=== PATIENT | female | born 1955 | race Caucasian/White ===

== ENCOUNTER 2016-07-28 16:44 | Emergency (ER) | payer SELFPAY ==
[~2016-07-28 16:44] MED LIST: LISI-363 PO
[2016-07-28 16:59] VITALS: BP 129/82; PULSE 75; RESP 16; TEMP 98.2; O2SAT 94
--- NOTE | 2016-07-28 19:35 | PD ---
HPI Chief Complaint: Alcohol/Drug Intoxication Time Seen by Provider: 19:34 Travel History International Travel<30 days: No Contact w/Intl Traveler<30days: No Traveled to known affect area: No History of Present Illness HPI 60-year-old female presents to the emergency department under my [place] act for alcohol intoxication. She reports alcohol use daily. Denies illicit drug use. She said she had a little bit too much to drink today. He has no emergent medical complaints. She denies fever, chills, nausea, vomiting. Denies chest pain, shortness breath, abdominal pain, change in urine or stool. I suicidal or homicidal ideation. Denies auditory or visual hallucinations. No known allergies. No other modifying factors or associated signs and symptoms. PFSH Past Medical History Arthritis: Yes Blood Disorders: No Anxiety: No Depression: No Cancer: No Cardiovascular Problems: No Cerebrovascular Accident: No Endocrine: No Genitourinary: No Headaches: Yes Immune Disorder: No Musculoskeletal: Yes Neurologic: Yes Psychiatric: Yes Reproductive: No Respiratory: No Migraines: No Seizures: No Past Surgical History AICD: No Arteriovenous Shunt: No Insulin Pump: No Joint Replacement: No Pacemaker: No Social History Alcohol Use: Yes (DAILY) Tobacco Use: Yes (ONE PK PER DAY) Substance Use: No Allergies-Medications (Allergen,Severity, Reaction): Coded Allergies: No Known Allergies (Verified , 07/28/16) Reported Meds & Prescriptions Reported Meds & Active Scripts Active No Active Prescriptions or Reported Medications Review of Systems Except as stated in HPI: all other systems reviewed are Neg Physical Exam Narrative GENERAL: Well-nourished, well-developed female patient, in no acute distress; disheveled, smells of EtOH SKIN: Warm and dry. HEAD: Atraumatic. Normocephalic. EYES: Pupils equal and round. ENT: Mucosa pink and moist. NECK: Supple. Trachea midline. CARDIOVASCULAR: Regular rate and rhythm. No murmur appreciated. RESPIRATORY: No accessory muscle use. Clear to auscultation. Breath sounds equal bilaterally. GASTROINTESTINAL: Abdomen soft, non-tender, nondistended. Hepatic and splenic margins not palpable. Bowel sounds are active 4 quadrants. MUSCULOSKELETAL: No obvious deformities. No clubbing. No cyanosis. No edema. BACK: No CVA tenderness. NEUROLOGICAL: Awake and alert. Oriented 3. No obvious cranial nerve deficits. Motor grossly within normal limits. Normal speech. Moves all extremities. 5/5 strength to all extremities. PSYCHIATRIC: No delusional thought processes. No hallucinations. Data Data Last Documented VS Vital Signs Date Time Temp Pulse Resp B/P Pulse Ox O2 Delivery O2 Flow Rate FiO2 07/28/16 16:59 98.2 75 16 129/82 94 Orders Diet Regular Basic (07/29/16 Breakfast) MDM Medical Decision Making Medical Screen Exam Complete: Yes Emergency Medical Condition: Yes Medical Record Reviewed: Yes Differential Diagnosis Alcohol intoxication, alcohol abuse, alcohol dependence, medical clearance Narrative Course 60-year-old female presents to the ER under Marchman act for alcohol intoxication. The patient smells of EtOH. She is awake and alert for physical exam. Has no emergent medical complaints at this time. The patient will be given time to sleep it off and will be reevaluated at a later time when clinically sober. The patient will most likely be discharged home at that time. Diagnosis Primary Impression: Alcohol intoxication Qualified Code: F10.120 - Alcohol intoxication, uncomplicated Referrals: Primary Care Physician Patient Instructions: Abuse of Alcohol (ED), Alcohol Dependence (ED), Alcohol Intoxication (ED), General Instructions Additional Instructions: Stop drinking alcohol Follow-up with primary care provider Med/Other Pt SpecificInfo: No Meds Exist/No RX given Scripts No Active Prescriptions or Reported Meds Disposition: 01 DISCHARGE HOME Condition: Stable Clara Culp Jul 28, 2016 19:35
[2016-07-28 21:39] VITALS: BP 118/61; PULSE 92; RESP 18; O2SAT 95
[2016-07-29 01:41] VITALS: BP 116/62; PULSE 74; RESP 14; O2SAT 95
[2016-07-29 05:30] VITALS: BP 121/73; PULSE 98; RESP 16; O2SAT 95
== END 2016-07-29 06:08 | disposition home or self-care (01) ==
LOC: NEDAMB 16:44 → NEPA 07-29 06:08
DX: F10.129 Alcohol abuse with intoxication, unspecified (principal); F17.210 Nicotine dependence, cigarettes, uncomplicated
CPT/HCPCS: 99284

== ENCOUNTER 2017-04-10 15:23 | Emergency (ER) | payer OTHER ==
[2017-04-10 16:05] VITALS: BP 156/65; PULSE 84; RESP 20; TEMP 98; O2SAT 97
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
[2017-04-10] MEDS ORDERED: TETANUS/DIPHTHERIA TOXOID ADULT 0.5 ML VIAL IM ONE (16:30)
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
[2017-04-10 19:15] VITALS: BP 184/97
== END 2017-04-10 19:28 | disposition home or self-care (01) ==
LOC: NEDAMB 15:23
DX: S09.90XA Unspecified injury of head, initial encounter (principal); S50.312A Abrasion of left elbow, initial encounter; S00.03XA Contusion of scalp, initial encounter; V19.9XXA Pedal cyclist (driver) (passenger) injured in unspecified traffic accident, initial encounter; Y93.55 Activity, bike riding; Y92.481 Parking lot as the place of occurrence of the external cause; Z23 Encounter for immunization; I10 Essential (primary) hypertension
CPT/HCPCS: 70450; 90471; 90714

== ENCOUNTER 2017-07-24 10:02 | Inpatient (IN) | payer SELFPAY ==
[~2017-07-24] VITALS: Ht 172.7 cm; Wt 79.5 kg
[2017-07-24 10:03] VITALS: BP 177/131; PULSE 116; RESP 20; TEMP 98.8; O2SAT 97
[2017-07-24] MEDS ORDERED: ACETAMINOPHEN/HYDROcodone 325 MG/5 MG TAB PO ONE (10:30)
--- NOTE | 2017-07-24 11:30 | RADRPT ---
EXAM DATE/TIME: 07/24/2017 11:07 [facility] COMPARISON: No previous studies available for comparison. INDICATIONS : Fell Sunday, painful, deformed with laceration to 5th finger. MEDICAL HISTORY : None. SURGICAL HISTORY : None. ENCOUNTER: Initial ACUITY: 4 - 6 days PAIN SCORE: 10/10 LOCATION: Left hand FINDINGS: There is a transverse fracture through the proximal metaphysis of the 5th digit proximal phalanx with moderate medial angulation of the distal fracture fragment. There is diffuse osteopenia. The remai nder of the osseous structures of the hand are intact. No radiopaque foreign bodies. CONCLUSION: Angulated fracture of the proximal metaphysis of the 5th digit proximal phalanx. Jason Leonardo MD on July 24, 2017 at 11:28 Board Certified Radiologist. This report was verified electronically.
[2017-07-24] MEDS ORDERED: PROPOFOL 200 MG/20 ML AMP IV ONE (12:00)
[2017-07-24] MEDS ORDERED: ONDANSETRON HCL 4 MG/2 ML VIAL IV ONE (12:00)
[2017-07-24] MEDS ORDERED: GENTAMICIN 80 MG PREMIX 100 ML IV ONE (12:00)
[2017-07-24] MEDS ORDERED: ceFAZolin 2 GM PREMIX 50 ML IV ONE (12:00)
[2017-07-24] MEDS ORDERED: DEXAMETHASONE SOD PHOS 4 MG/ML VIAL IV ONE (12:00)
[2017-07-24] MEDS ORDERED: LIDOCAINE HCL 1% PF 5 ML SYRINGE OTHER ONE (12:00)
[2017-07-24] MEDS ORDERED: NEOSTIGMINE 5 MG/5 ML SYRINGE IV PUSH ONE (12:00)
[2017-07-24] MEDS ORDERED: ROCURONIUM INJ 50 MG/5 ML SYRINGE IV PUSH ONE (12:00)
[2017-07-24] MEDS ORDERED: ePHEDrine/NS 25 MG/5 ML SYRINGE IV ONE (12:00)
[2017-07-24] MEDS ORDERED: GLYCOPYRROLATE 1 MG/5 ML SYRINGE IV PUSH ONE (12:00)
--- NOTE | 2017-07-24 12:31 | PD ---
HPI Chief Complaint: Injury Time Seen by Provider: 10:12 Travel History International Travel<30 days: No Contact w/Intl Traveler<30days: No Traveled to known affect area: No History of Present Illness HPI Patient is a 61 year old female who comes in complaining of pain to her left fifth finger. She says that on Sunday she fell and she hit her hand on a fence. She says her finger was crooked at the time and she noticed the laceration. She says her friend bandaged it for her. She comes in today because she is still having a lot of pain. She has not taken anything for the pain. She has not taken the bandage off since it was put on. She denies fever or chills. Severity is mild to moderate. PFSH Past Medical History Arthritis: Yes Blood Disorders: No Anxiety: No Depression: No Cancer: No Cardiovascular Problems: No Cerebrovascular Accident: No Endocrine: No Genitourinary: No Headaches: Yes Hypertension: Yes (Does not take medication for it) Immune Disorder: No Musculoskeletal: Yes Neurologic: Yes Psychiatric: Yes Reproductive: No Respiratory: No Migraines: No Seizures: No ?: Not Past Surgical History AICD: No Arteriovenous Shunt: No Insulin Pump: No Joint Replacement: No Pacemaker: No Social History Alcohol Use: Yes (DAILY) Tobacco Use: Yes (ONE PK PER DAY) Substance Use: Yes ("Pot occationally") Allergies-Medications (Allergen,Severity, Reaction): Coded Allergies: No Known Allergies (Verified Adverse Reaction, Unknown, 07/24/17) Reported Meds & Prescriptions Reported Meds & Active Scripts Active No Active Prescriptions or Reported Medications Review of Systems Except as stated in HPI: all other systems reviewed are Neg General / Constitutional: No: Fever, Chills HENT: No: Headaches, Lightheadedness Cardiovascular: No: Chest Pain or Discomfort Respiratory: No: Shortness of Breath Gastrointestinal: No: Nausea, Vomiting Musculoskeletal: Positive: Pain Skin: Positive Other (laceration) Neurologic: No: Weakness, Dizziness Physical Exam Narrative GENERAL: Awake and alert, in no acute distress. SKIN: Skin at the base of the left fifth finger is macerated. There is a laceration that appears to be oozing pus. HEAD: Atraumatic. Normocephalic. EYES: Pupils equal and round. No scleral icterus. ENT: Mucous membranes pink and moist. NECK: Trachea midline. No JVD. CARDIOVASCULAR: Regular rate and rhythm. No murmur appreciated. RESPIRATORY: No accessory muscle use. Clear to auscultation. Breath sounds equal bilaterally. MUSCULOSKELETAL: left fifth finger is angulated and painful with movement. Sensation intact, capillary refill intact. NEUROLOGICAL: Awake and alert. No obvious cranial nerve deficits. Motor grossly within normal limits. Normal speech. PSYCHIATRIC: Appropriate mood and affect; insight and judgment normal. Data Data Last Documented VS Vital Signs Date Time Temp Pulse Resp B/P (MAP) Pulse Ox O2 Delivery O2 Flow Rate FiO2 07/24/17 10:03 98.8 116 20 177/131 (146) 97 Room Air Orders Orders Acetamin-Hydrocod 325-5 Mg ([place] 5-325 (07/24/17 10:30) Hand, Complete ([id number]) (07/24/17 ) Iv Access Insert/Monitor (07/24/17 11:58) Complete Blood Count With Diff (07/24/17 11:58) Comprehensive Metabolic Panel (07/24/17 11:58) Act Partial Throm Time (Ptt) (07/24/17 11:58) Prothrombin Time / Inr (Pt) (07/24/17 11:58) Cefazolin 2 Gm Premix (Ancef 2 Gm Premix (07/24/17 12:00) Gentamicin 80 Mg Premix (Gentamicin 80 M (07/24/17 12:00) MDM Medical Decision Making Medical Screen Exam Complete: Yes Emergency Medical Condition: Yes Medical Record Reviewed: Yes Differential Diagnosis fracture vs laceration vs open fracture Narrative Course Patient is a 61 year old female who comes in complaining of pain to her left fifth finger. Exam shows angulation of the finger with a laceration at the base of the finger that appears infected. XR confirms fracture of the fifth finger. Last 24 hours Impressions Hand X-Ray 07/24/17 0000 Signed Impressions: Service Date/Time: Monday, July 24, 2017 11:07 - CONCLUSION: Angulated fracture of the proximal metaphysis of the 5th digit proximal phalanx. Jason Leonardo MD There is concern for an open fracture with signs of infection on the skin. I spoke with Dr. Briggs who suggests admission for IV antibiotics and he will take her to the OR to wash out the joint this evening. IV established. She was given Ancef and Gentamicin. Given pain medicine. Admitted for further management. Diagnosis Primary Impression: Open fracture Admitting Information Admitting Physician Requests: Admit Scripts No Active Prescriptions or Reported Meds Nena Beckham MD Jul 24, 2017 12:31
[2017-07-24 12:37] LABS: AUTOMATED NEUTROPHIL # 6.5 TH/MM3 (1.8-7.7); BASOPHIL % 0.3 % (0.0-2.0); EOSINOPHIL # 0.1 TH/MM3 (0-0.4); EOSINOPHIL % 1.1 % (0.0-4.0); HEMATOCRIT 43.4 % (35.0-46.0); LYMPH % 15.8 % (9.0-44.0); LYMPHOCYTE # 1.4 TH/MM3 (1.0-4.8); MEAN CELL VOLUME 91.3 FL (80.0-100.0); MEAN CORPUSCULAR HEMOGLOBIN 31.6 PG (27.0-34.0); MEAN CORPUSCULAR HGB CONC 34.6 % (32.0-36.0); MEAN PLATELET VOLUME 7.9 FL (7.0-11.0); MONO % 6.3 % (0.0-8.0); MONOCYTE # 0.5 TH/MM3 (0-0.9); NEUT % 76.5 % (16.0-70.0); PLATELET COUNT 282 TH/MM3 (150-450); RED BLOOD COUNT 4.75 MIL/MM3 (4.00-5.30); RED CELL DISTRIBUTION WIDTH 15.1 % (11.6-17.2); WHITE BLOOD COUNT 8.6 TH/MM3 (4.0-11.0)
[2017-07-24] MEDS ORDERED: SENNOSIDES 8.6 MG TAB PO PRN (12:45)
[2017-07-24] MEDS ORDERED: SODIUM CHLORIDE 0.9% FLUSH 10 ML FLUSH IV FLUSH PRN (12:45)
[2017-07-24] MEDS ORDERED: BISACODYL 10 MG SUPP RECTAL PRN (12:45)
[2017-07-24] MEDS ORDERED: LORazepam 2 MG/ML VIAL IV PUSH PRN ×4 (12:45)
[2017-07-24] MEDS ORDERED: NALOXONE HCL 0.4 MG/ML AMP IV PUSH PRN ×2 (12:45)
[2017-07-24] MEDS ORDERED: LACTULOSE SYRUP 20 GM/30 ML CUP PO PRN (12:45)
[2017-07-24] MEDS ORDERED: LORazepam 2 MG TAB PO PRN (12:45)
[2017-07-24] MEDS ORDERED: LORazepam 1 MG TAB PO PRN (12:45)
[2017-07-24] MEDS ORDERED: MAGNESIUM HYDROXIDE SUSP 30 ML CUP PO PRN (12:45)
[2017-07-24] MEDS ORDERED: cloNIDine HCL 0.1 MG TAB PO PRN (12:45)
[2017-07-24] MEDS ORDERED: ONDANSETRON HCL 4 MG/2 ML VIAL IVP PRN (12:45)
[2017-07-24] MEDS ORDERED: ACETAMINOPHEN 325 MG TAB PO PRN ×2 (12:45)
[2017-07-24] MEDS ORDERED: FLUMAZENIL 0.5 MG/5 ML VIAL IV PUSH PRN (12:45)
[2017-07-24 12:46] LABS: PROTHROMBIN TIME - PATIENT 10.1 SEC (9.8-11.6)
[2017-07-24 13:00] LABS: AST (GOT) 29 U/L (15-37); BICARBONATE 28.3 MEQ/L (21.0-32.0); BLOOD UREA NITROGEN 9 MG/DL (7-18); CALCIUM 9.6 MG/DL (8.5-10.1); CHLORIDE 101 MEQ/L (98-107); CREATININE 0.63 MG/DL (0.50-1.00); GLOMERULAR FILTRATION RATE 96 ML/MIN (>89); GLUCOSE,RANDOM 104 MG/DL (74-106); SODIUM (NA) 137 MEQ/L (136-145)
[2017-07-24] MEDS ORDERED: SODIUM CHLOR 0.45% 1000 ML INJ 1,000 ML IV SCH (13:00)
[2017-07-24 13:04] LABS: ALKALINE PHOSPHATASE 106 U/L (45-117); ALT (GPT) 29 U/L (10-53); TOTAL BILIRUBIN ADULT 0.7 MG/DL (0.2-1.0); TOTAL PROTEIN 8.4 GM/DL (6.4-8.2)
[2017-07-24 13:11] VITALS: BP 148/85; PULSE 75; RESP 18; TEMP 98.7; O2SAT 94
--- NOTE | 2017-07-24 13:40 | HHI.HP ---
HPI Service [facility] Primary Care Physician No Primary Care Physician Admission Diagnosis Open fracture Diagnoses: Chief Complaint: Left finger pain Travel History International Travel<30 Days: No Contact w/Intl Traveler <30 Da: No Traveled to Known Affected Are: No History of Present Illness 61-year-old female who presented to the emergency room with complaint of left fifth finger pain. Apparently the patient fell on her hand about 3 days ago and sustained an injury of the left fifth finger. She reported a laceration on the palmar aspect and significant swelling. She had a ring on that finger which she had to cut. She denies any fevers or chills. Workup in the emergency room revealed an open, angulated fracture at the proximal metaphysis of the fifth phalanx. There appears to be mild surrounding cellulitis as well and concern for infection. The patient last tetanus vaccine was about 4 months ago. Hand surgery has been consulted and planning for surgical intervention. Patient also has a history of hypertension but does not take medications for it. She reports that her blood pressure has been better since she has less stress in her life. Review of Systems Constitutional: DENIES: Fever, Chills Except as stated in HPI: all other systems reviewed are Neg Past Family Social History Past Medical History Hypertension, does not take medications. Really does not follow-up with doctors. Past Surgical History Right arm surgery after traumatic accident involving a glass Reported Medications Reported Meds & Active Scripts Active No Active Prescriptions or Reported Medications Allergies: Coded Allergies: No Known Allergies (Verified Allergy, Unknown, 07/24/17) Family History Reviewed and is noncontributory. Social History Patient admits to smoking half a pack of cigarettes per day. She drinks a 4 pack of beer most days of the week. She admits to occasional use of marijuana Physical Exam Vital Signs Vital Signs Date Time Temp Pulse Resp B/P (MAP) Pulse Ox O2 Delivery O2 Flow Rate FiO2 07/24/17 13:11 98.7 75 18 148/85 (106) 94 Room Air 07/24/17 10:03 98.8 116 20 177/131 (146) 97 Room Air Physical Exam GENERAL: This is a well-nourished, well-developed patient, in no apparent distress. HEAD: Atraumatic. Normocephalic. No temporal or scalp tenderness. EYES: Pupils equal round and reactive. Extraocular motions intact. No scleral icterus. No injection or drainage. ENT: Nose without bleeding, purulent drainage or septal hematoma. Throat without erythema, tonsillar hypertrophy or exudate. Uvula midline. Airway patent. NECK: Trachea midline. No JVD or lymphadenopathy. Supple, nontender, no meningeal signs. CARDIOVASCULAR: Regular rate and rhythm without murmurs, gallops, or rubs. RESPIRATORY: Clear to auscultation. Breath sounds equal bilaterally. No wheezes , rales, or rhonchi. GASTROINTESTINAL: Abdomen soft, non-tender, nondistended. No hepato-splenomegaly , or palpable masses. No guarding. MUSCULOSKELETAL: No lower extremity edema. Negative Homans sign bilaterally. Left proximal fifth finger has a laceration that is extending to the lateral side. There is mild surrounding cellulitis. The wound has been washed and dressed with a clean dressing. Neurovascularly intact at the tip of the finger NEUROLOGICAL: Awake and alert. Cranial nerves II through XII intact. Motor and sensory grossly within normal limits. Five out of 5 muscle strength in all muscle groups. Normal speech. Laboratory Laboratory Tests Test 07/24/17 12:10 White Blood Count 8.6 Red Blood Count 4.75 Hemoglobin 15.0 Hematocrit 43.4 Mean Corpuscular Volume 91.3 Mean Corpuscular Hemoglobin 31.6 Mean Corpuscular Hemoglobin Concent 34.6 Red Cell Distribution Width 15.1 Platelet Count 282 Mean Platelet Volume 7.9 Neutrophils (%) (Auto) 76.5 Lymphocytes (%) (Auto) 15.8 Monocytes (%) (Auto) 6.3 Eosinophils (%) (Auto) 1.1 Basophils (%) (Auto) 0.3 Neutrophils # (Auto) 6.5 Lymphocytes # (Auto) 1.4 Monocytes # (Auto) 0.5 Eosinophils # (Auto) 0.1 Basophils # (Auto) 0.0 CBC Comment DIFF FINAL Differential Comment Prothrombin Time 10.1 Prothromb Time International Ratio 1.0 Activated Partial Thromboplast Time 26.7 Blood Urea Nitrogen 9 Creatinine 0.63 Random Glucose 104 Total Protein 8.4 Albumin 4.0 Calcium Level 9.6 Alkaline Phosphatase 106 Aspartate Amino Transf (AST/SGOT) 29 Alanine Aminotransferase (ALT/SGPT) 29 Total Bilirubin 0.7 Sodium Level 137 Potassium Level 3.9 Chloride Level 101 Carbon Dioxide Level 28.3 Anion Gap 8 Estimat Glomerular Filtration Rate 96 Result Diagram: 07/24/17 1210 07/24/17 1210 Imaging Last Impressions Hand X-Ray 07/24/17 0000 Signed Impressions: Service Date/Time: Monday, July 24, 2017 11:07 - CONCLUSION: Angulated fracture of the proximal metaphysis of the 5th digit proximal phalanx. MD Anabelle Horne VTE Risk Assessment Caprini VTE Risk Assessment: No/Low Risk (score <= 1) Caprini Risk Assessment Model Point Value = 1 Point Value = 2 Point Value = 3 Point Value = 5 Age 41-60 Minor surgery BMI > 25 kg/m2 Swollen legs Varicose veins or History of unexplained or recurrent spontaneous Oral contraceptives or hormone replacement Sepsis (< 1 month) Serious lung disease, including pneumonia (< 1 month) Abnormal pulmonary function Acute myocardial infarction Congestive heart failure (< 1 month) History of inflammatory bowel disease Medical patient at bed rest Age 61-74 Arthroscopic surgery Major open surgery (> 45 min) Laparoscopic surgery (> 45 min) Malignancy Confined to bed (> 72 hours) Immobilizing plaster cast Central venous access Age >= 75 History of VTE Family history of VTE Factor V Leiden Prothrombin [id number] Lupus anticoagulant Anticardiolipin antibodies Elevated serum homocysteine Heparin-induced thrombocytopenia Other congenital or acquired thrombophilia Stroke (< 1 month) Elective arthroplasty Hip, pelvis, or leg fracture Acute spinal cord injury (< 1 month) Prophylaxis Regimen Total Risk Factor Score Risk Level Prophylaxis Regimen 0-1 Low Early ambulation 2 Moderate Order ONE of the following: *Sequential Compression Device (SCD) *Heparin 5000 units SQ BID 3-4 Higher Order ONE of the following medications: *Heparin 5000 units SQ TID *Enoxaparin/Lovenox 40 mg SQ daily (WT < 150 kg, CrCl > 30 mL/min) *Enoxaparin/Lovenox 30 mg SQ daily (WT < 150 kg, CrCl > 10-29 mL/min) *Enoxaparin/Lovenox 30 mg SQ BID (WT < 150 kg, CrCl > 30 mL/min) AND/OR *Sequential Compression Device (SCD) 5 or more Highest Order ONE of the following medications: *Heparin 5000 units SQ TID (Preferred with Epidurals) *Enoxaparin/Lovenox 40 mg SQ daily (WT < 150 kg, CrCl > 30 mL/min) *Enoxaparin/Lovenox 30 mg SQ daily (WT < 150 kg, CrCl > 10-29 mL/min) *Enoxaparin/Lovenox 30 mg SQ BID (WT < 150 kg, CrCl > 30 mL/min) AND *Sequential Compression Device (SCD) Assessment and Plan Problem List: (1) Proximal phalanx fracture of finger ICD Code: S62.619A - Displaced fracture of proximal phalanx of unspecified finger, initial encounter for closed fracture Status: Acute Plan: Hand surgery consulted and planning for surgical intervention Pain control Dirty wound on presentation. Given probability of infection, patient started on IV antibiotics. Continue Ancef. (2) Cellulitis ICD Code: L03.90 - Cellulitis, unspecified Plan: Secondary to above, and mild surrounding cellulitis. Continue IV Ancef. (3) Alcohol dependence ICD Code: F10.20 - Alcohol dependence, uncomplicated Plan: The patient was counseled regarding cessation. [facility] protocol (4) Hypertension ICD Code: I10 - Essential (primary) hypertension Plan: Patient reports her blood pressure has been controlled without medications. I suspect noncompliance. Continue to monitor BP trend. Clonidine as needed. May need to start regular antihypertensives but I'm unsure if she will continue this medication after discharge. Follow trend. Discussed Condition With Dr. Beckham Physician Certification 2 Midnight Certification Type: Admission for Inpatient Services Order for Inpatient Services The services are ordered in accordance with Medicare regulations or non- Medicare payer requirements, as applicable. In the case of services not specified as inpatient-only, they are appropriately provided as inpatient services in accordance with the 2-midnight benchmark. Estimated LOS (days): 2 days is the estimated time the patient will need to remain in the hospital, assuming treatment plan goals are met and no additional complications. Post-Hospital Plan: Home Problem Qualifiers (1) Proximal phalanx fracture of finger: Qualified Codes: S62.617B - Displaced fracture of proximal phalanx of left little finger, initial encounter for open fracture Missael Jenkins MD Jul 24, 2017 13:40
[2017-07-24] MEDS ORDERED: BUPIVACAINE HCL PF 0.5% 30 ML VIAL ONE (15:41)
[2017-07-24] MEDS ORDERED: BACITRACIN TOP OINT 15 GM TUBE ONE (15:41)
[2017-07-24] MEDS ORDERED: LIDOCAINE HCL 2% 50 ML VIAL ONE (15:41)
[2017-07-24] MEDS: ACETAMINOPHEN/HYDROcodone 325 MG/5 MG TAB PO PRN ×2 (15:57→22:13)
[2017-07-24 15:59] VITALS: BP 140/88; PULSE 76; RESP 17; O2SAT 97
[2017-07-24] MEDS ORDERED: ACETAMINOPHEN 1000 MG/100 ML 100 ML IV ONE (16:33)
[2017-07-24] MEDS ORDERED: NEOMYCIN/POLYMYXIN 1 ML G.U. IRRIGANT ONE (16:51)
[2017-07-24] MEDS ORDERED: CHLORHEXIDINE GLUCONATE 2 % 1 PACK (2 CLOTHS) TOPICAL PRN (17:00)
[2017-07-24] MEDS ORDERED: SODIUM CHLORID 0.9% 500 ML IV PRN (17:00)
[2017-07-24] MEDS ORDERED: POVIDONE IODINE 5% (ANTISEPSIS KIT) 4 APPLICATIONS EACH NARE PRN (17:00)
[2017-07-24] MEDS ORDERED: METOPROLOL TARTRATE 25 MG TAB PO PRN (17:00)
[2017-07-24] MEDS ORDERED: LACTATED RINGER'S 1000 ML IV PRN (17:00)
[2017-07-24] MEDS ORDERED: ceFAZolin INJ 1,000 MG VIAL ONE (17:18)
[2017-07-24] MEDS ORDERED: NEOMYCIN/POLYMYXIN 1 ML G.U. IRRIGANT IRRIGATION ONE (18:45)
[2017-07-24] MEDS ORDERED: DO NOT ADM ANY ANTICOAGULANT DRUGS PRN (18:50)
--- NOTE | 2017-07-24 18:50 | PD.OP ---
Operative Report Preoperative Diagnosis: (1) Open displaced fracture of proximal phalanx of left little finger (2) Closed nondisplaced fracture of proximal phalanx of left ring finger Postoperative Diagnosis: (1) Open displaced fracture of proximal phalanx of left little finger (2) Closed nondisplaced fracture of proximal phalanx of left ring finger Procedure: wash, debridement, open reduction and internal fixation with K -wire proximal phalanx left little finger Anesthesia: general Surgeon: Tej Briggs Family Service Caseworker(s): tee Operation and Findings: displace open epibasal fracture proximal phalanx left little finger laceration radial and volar aspect of the proximal phalanx left little fingert closed undisplaced fracture proximal phalanx left ring finger Tej Briggs MD Jul 24, 2017 18:50
--- NOTE | 2017-07-24 19:32 | MB ---
cc: BOB OWEN MD DATE OF CONSULTATION 07/24/2017 REASON FOR CONSULTATION Open fracture proximal phalanx left little finger. HISTORY OF THE PRESENT ILLNESS The patient is a 67-year-old right-hand dominant female who presented to the ED with complaints of fall and injury to the left hand 3 days ago. The patient states she tripped and fell three days ago sustaining injury to the left hand. The patient states she noticed deformity of the little finger with laceration. She did not seek immediate medical attention. She presented today with worsening pain and swelling of the left little and the ring fingers. Denies any fever. Denies any chills. Complains of mild drainage. Denies any numbness. PAST MEDICAL AND SURGICAL HISTORY Reviewed and significant for: Hypertension. PHYSICAL EXAMINATION GENERAL: The patient is alert and oriented times three. EXTREMITIES: Examination of left hand reveals swelling of the ring and little fingers. Ecchymosis noted over the volar aspect of the ring and little fingers. There is a laceration along the radial aspect of the proximal phalanx region of the little finger at the junction of the palm to the little finger. The laceration extends along the radial aspect onto the dorsal aspect of the proximal phalanx. It measures about 3-4 cm with exposed soft tissue, surrounding skin maceration, surrounding mild redness. She has tenderness over the region. Tenderness noted over the proximal phalanx region of the little and the ring fingers. Range of motion of the little and ring fingers was limited and painful. She has intact capillary refill. She has intact distal sensation. IMAGING X-rays of the left hand shows diffuse osteoporosis. There is a Epibasal fracture involving the proximal phalanx base with displacement. There is also an undisplaced fracture involving the base of the proximal phalanx of the ring finger. ASSESSMENT 61-year-old female with open displaced fracture proximal phalanx left little finger and closed undisplaced fracture proximal phalanx left ring finger. PLAN The plan will be, the patient has an open fracture with questionable infection. We will proceed with wash, debridement closed / open reduction internal fixation of the proximal phalanx left little finger. The ring finger fracture can be managed closed. The patient has been consented for the same. She has been explained risk and benefits of procedure. MD HUGH Ahumada /6:57 PM /7:03 PM DREW
--- NOTE | 2017-07-24 20:05 | MP ---
cc: TEJ OWEN MD DATE OF SURGERY: 07/24/2017 PREOPERATIVE DIAGNOSIS: Open displaced proximal phalanx fracture left little finger and closed undisplaced proximal phalanx left ring finger. POSTOPERATIVE DIAGNOSIS Open displaced proximal phalanx fracture left little finger and closed undisplaced proximal phalanx fracture left ring finger. PROCEDURE Wash, debridement, open reduction internal fixation proximal phalanx with K-wire, left little finger. SURGEON Dr. Owen. ANESTHESIA General ESTIMATED BLOOD LOSS Minimal IMPLANTS: 0.045 K-wires x1. DISPOSITION: To PACU stable. INDICATIONS: The patient is a 61-year-old right-hand dominant female who presented with complaints of fall and injury to the left hand three days ago. The patient states she had a fall and sustained an injury to the left hand. She complained of laceration and pain involving the left little and ring finger. On examination she had laceration along the volar ulnar aspect of the proximal phalanx region of the little finger with surrounding maceration and exposed soft tissues and deformity of the little finger. She also had swelling involving the ring and the little fingers. Tenderness over the proximal phalanx region of the little and the ring finger were noted. X-ray showed the displaced Epibasal fracture involving the proximal phalanx base, left little finger. She also had closed nondisplaced fracture proximal phalanx left ring finger. The patient was consented for wash, debridement closed/open reduction, internal fixation of proximal phalanx left little finger. She was explained the risks and benefits of the procedure. DESCRIPTION OF PROCEDURE: The patient was brought to the operating room and under general anesthesia the left upper extremity was thoroughly prepped and draped. After limb exsanguination, tourniquet was inflated 250 mmHg. Exploration of the was carried out. Intraoperative findings included laceration along the volar radial aspect of the proximal phalanx region extending onto the dorsal aspect of the proximal phalanx measuring about 3 cm with exposed soft tissues. There was evidence of displaced proximal phalanx fracture through this laceration. The radial digital nerve to the little finger was found to be intact. No obvious signs of infection was noted. Swabs were obtained for culture and sensitivity. Thorough wash was given using normal saline mixed with irrigant. Debridement of devitalized tissue around the open fracture site was carried out. Reduction of the fracture was then carried out. As the fracture was closed to the base of the proximal phalanx. Decision was made to proceed with antegrade pinning of the MP joint to capture the base of the proximal phalanx. Under C-arm guidance 0.045 K-wire was then introduced from the head of the fifth metacarpal keeping the MP joint in flexion and capturing the proximal base of the proximal phalanx. With reduction confirmed using C-arm and through the laceration site, the K-wire was then drilled across the fracture into the distal fragment. Multiple C-arm views were obtained to confirm the fracture reduction. The fracture was well reduced. The K-wire was also well placed within the medullary canal. Thorough wash of the wound was carried out. The wound was then loosely approximated using 5-0 nylon in a horizontal mattress interrupted fashion. The K-wire was cut and protected with Renan balls. Xeroform dressing applied. About 5 cc of local anesthesia was injected across the laceration site and K-wire pin track site. Tourniquet was deflated. Total tourniquet time was 37 minutes. The patient had good distal circulation after release of tourniquet. Bulky hand dressing was applied which was held in place by a dorsal and volar splint keeping the wrist in extension and MP joint and flexion extending to the fingertip. The patient had undisplaced proximal phalanx fracture of the ring finger which was managed with a splint applied for the little finger as an ulnar gutter splint. The patient was recovered and sent to recovery in stable condition. The plan will be to keep the limb elevated. Continue IV antibiotics for 24 to 48 hours based on the Gram stain and cultures. Hand surgery will closely follow. Tej Owen MD SE/MARY /6:50 PM /7:36 PM DREW
[2017-07-24 20:30] VITALS: BP 179/79; PULSE 84; RESP 18; TEMP 98; O2SAT 94
[2017-07-24] MEDS: SODIUM CHLORIDE 0.9% FLUSH 10 ML FLUSH IV FLUSH SCH (21:00)
[2017-07-25] VITALS (7 sets, daily range): BP systolic 115–158; BP diastolic 70–91; PULSE 74–83; RESP 17–18; TEMP 97.6–98.4; O2SAT 92–95
[2017-07-25] MEDS: ACETAMINOPHEN/HYDROcodone 325 MG/5 MG TAB PO PRN ×4 (08:15→21:17)
[2017-07-25] MEDS: SODIUM CHLORIDE 0.9% FLUSH 10 ML FLUSH IV FLUSH SCH ×2 (08:16→21:16)
[2017-07-25 08:30] LABS: AUTOMATED NEUTROPHIL # 8.3 TH/MM3 (1.8-7.7); BASOPHIL % 0.4 % (0.0-2.0); EOSINOPHIL % 0.3 % (0.0-4.0); HEMATOCRIT 37.5 % (35.0-46.0); HEMOGLOBIN 12.8 GM/DL (11.6-15.3); LYMPH % 15.5 % (9.0-44.0); LYMPHOCYTE # 1.6 TH/MM3 (1.0-4.8); MEAN CELL VOLUME 92.3 FL (80.0-100.0); MEAN CORPUSCULAR HEMOGLOBIN 31.5 PG (27.0-34.0); MEAN CORPUSCULAR HGB CONC 34.1 % (32.0-36.0); MEAN PLATELET VOLUME 8.5 FL (7.0-11.0); MONO % 5.6 % (0.0-8.0); MONOCYTE # 0.6 TH/MM3 (0-0.9); NEUT % 78.2 % (16.0-70.0); PLATELET COUNT 247 TH/MM3 (150-450); RED BLOOD COUNT 4.06 MIL/MM3 (4.00-5.30); WHITE BLOOD COUNT 10.6 TH/MM3 (4.0-11.0)
[2017-07-25 08:50] LABS: BICARBONATE 26.1 MEQ/L (21.0-32.0); CALCIUM 8.9 MG/DL (8.5-10.1); CREATININE 0.59 MG/DL (0.50-1.00)
--- NOTE | 2017-07-25 11:05 | HHI.PR ---
Subjective Remarks in no acute distress. pain is fairly controlled. no fever. Objective Vitals Vital Signs Date Time Temp Pulse Resp B/P (MAP) Pulse Ox O2 Delivery O2 Flow Rate FiO2 07/25/17 08:11 97.6 75 17 137/91 (106) 95 07/25/17 03:40 97.7 75 18 117/74 (88) 95 07/25/17 00:25 98.2 79 18 123/73 (90) 94 07/24/17 22:56 19 07/24/17 22:47 Nasal Cannula 2.00 07/24/17 20:30 98.0 84 18 179/79 (112) 94 07/24/17 20:00 97.7 72 20 146/86 (106) 96 Nasal Cannula 2 07/24/17 19:45 73 20 149/88 (108) 96 Nasal Cannula 2 07/24/17 19:30 74 20 142/79 (100) 94 Nasal Cannula 2 07/24/17 19:15 79 20 145/76 (99) 94 Nasal Cannula 2 07/24/17 18:53 97.7 107 20 129/104 (112) 93 Nasal Cannula 2 07/24/17 16:49 07/24/17 15:59 76 17 140/88 (105) 97 Room Air 07/24/17 13:11 98.7 75 18 148/85 (106) 94 Room Air I/O 07/24/17 07/24/17 07/24/17 07/25/17 07/25/17 07/25/17 07:00 15:00 23:00 07:00 15:00 23:00 Intake Total 1480 ml 580 ml Output Total 5 ml Balance 1475 ml 580 ml Intake Oral 480 ml 480 ml IV Total 1000 ml 100 ml Output Estimated Blood Loss 5 ml # Voids 0 1 # Bowel Movements 0 0 Result Diagram: 07/25/17 0743 07/25/17 0743 Imaging Last Impressions Hand X-Ray 07/24/17 0000 Signed Impressions: Service Date/Time: Monday, July 24, 2017 11:07 - CONCLUSION: Angulated fracture of the proximal metaphysis of the 5th digit proximal phalanx. Jason Leonardo MD Objective Remarks GENERAL: This is a well-nourished, well-developed patient, in no apparent distress. CARDIOVASCULAR: Regular rate and regular rhythm without murmurs, gallops, or rubs. RESPIRATORY: Clear to auscultation. Breath sounds equal bilaterally. No wheezes , rales, or rhonchi. GASTROINTESTINAL: Abdomen soft, non-tender, nondistended. Normal, active bowel sounds MUSCULOSKELETAL: left hand covered with clean dressing. NEURO: Alert & Oriented x4 to person, place, time, situation. Moves all ext x4 Procedures Wash, debridement, open reduction internal fixation proximal phalanx with K-wire , left little finger. Medications and IVs Inpatient Medications Acetaminophen (Tylenol) 650 mg Q6H PRN PO PAIN SCALE 1 TO 5; Start 07/24/17 at 12:45 Acetaminophen/ Hydrocodone Bitart (Sagle 5-325 Mg) 1 tab Q4H PRN PO PAIN GREATER THAN 5 Last administered on 07/25/17at 08:15; Start 07/24/17 at 12:45 Bisacodyl (Dulcolax Supp) 10 mg DAILY PRN RECTAL SEVERE CONSITIPATION; Start at 12:45 Cefazolin Sodium 1000 mg/Sodium Chloride 100 ml @ 200 mls/hr Q8H IV Last administered on 07/25/17at 03:34; Start 07/24/17 at 20:00 Cefazolin Sodium/ Dextrose 50 ml @ 100 mls/hr ONCE ONCE IV Last administered on 07/24/17at 12:14; Start 07/24/17 at 12:00; Stop 07/24/17 at 12:29; Status DC Chlorhexidine Gluconate (Chlorhexidine 2% Cloth) 3 pack MANAGING MEMBER PRN TOPICAL SEE LABEL COMMENTS; Start 07/24/17 at 17:00; Stop 07/27/17 at 16:59 Clonidine (Catapres) 0.1 mg Q6H PRN PO SBP> OR = 180, DBP> OR = 100 Last administered on 07/25/17at 03:41; Start 07/24/17 at 12:45 Flumazenil (Romazicon Inj) 0.2 mg Q1M PRN IV PUSH SEE LABEL COMMENTS; Start at 12:45 Gentamicin Sulfate/Sodium Chloride 100 ml @ 200 mls/hr ONCE ONCE IV Last administered on 07/24/17at 12:33; Start 07/24/17 at 12:00; Stop 07/24/17 at 12:29 ; Status DC Influenza Virus Vaccine (Flu (Quadrivalent) Vaccine Inj) 0.5 ml ONCE ONCE IM ; Start 07/26/17 at 10:00; Stop 07/26/17 at 10:01 Lactated Ringer's 1,000 ml @ 30 mls/hr Q24H PRN IV SEE LABEL COMMENTS; Start at 17:00; Stop 07/27/17 at 16:59 Lactulose (Lactulose Liq) 30 ml DAILY PRN PO SEVERE CONSITIPATION; Start at 12:45 Lorazepam (Ativan Inj) 2 mg Q15M PRN IV PUSH CIWA > 20; Start 07/24/17 at 12:45 Lorazepam (Ativan) 2 mg Q2H PRN PO CIWA 11-14; Start 07/24/17 at 12:45 Magnesium Hydroxide (Milk Of Magnesia Liq) 30 ml Q12H PRN PO Mild constipation ; Start 07/24/17 at 12:45 Metoprolol Tartrate (Lopressor) 25 mg MANAGING MEMBER PRN PO SEE LABEL COMMENTS; Start 07/24/17 at 17:00; Stop 07/27/17 at 16:59 Miscellaneous Information ALL NURSING DEPARTME... UNSCH PRN .XX SEE LABEL COMMENTS; Start 07/24/17 at 18:50; Stop 07/25/17 at 18:49 Naloxone HCl (Narcan Inj) 0.4 mg UNSCH PRN IV PUSH SEE LABEL COMMENTS; Start at 12:45 Neomycin/Polymyxin (Neosporin G.u. Irr) 1 ml ONCE ONCE IRRIGATION ; Start 07/24 at 18:45; Stop 07/24/17 at 19:35; Status DC Ondansetron HCl (Zofran Inj) 4 mg Q6H PRN IVP NAUSEA OR VOMITING; Start at 12:45 Pneumococcal Polyvalent Vaccine (Pneumovax-23 Inj) 25 mcg ONCE ONCE IM ; Start 07/26/17 at 10:00; Stop 07/26/17 at 10:01 Povidone Iodine (Betadine 5% Antisepsis Kit) 1 applic MANAGING MEMBER PRN EACH NARE SEE LABEL COMMENTS; Start 07/24/17 at 17:00; Stop 07/27/17 at 16:59 Sennosides (Senokot) 17.2 mg Q12H PRN PO Moderate constipation; Start 07/24/17 at 12:45 Sodium Chloride 500 ml @ 30 mls/hr [id number] PRN IV SEE LABEL COMMENTS; Start at 17:00; Stop 07/27/17 at 16:59 Sodium Chloride (NS Flush) 2 ml BID IV FLUSH ; Start 07/24/17 at 21:00 A/P Problem List: (1) Proximal phalanx fracture of finger ICD Code: S62.619A - Displaced fracture of proximal phalanx of unspecified finger, initial encounter for closed fracture Status: Acute (2) Cellulitis ICD Code: L03.90 - Cellulitis, unspecified (3) Alcohol dependence ICD Code: F10.20 - Alcohol dependence, uncomplicated (4) Hypertension ICD Code: I10 - Essential (primary) hypertension Assessment and Plan (1) Proximal phalanx fracture of finger s/p Wash, debridement, open reduction internal fixation proximal phalanx with K- wire, left little finger. continue with pain control- management per hand surgery. (2) Cellulitis Secondary to above, and mild surrounding cellulitis. Continue IV Ancef. (3) Alcohol dependence The patient was counseled regarding cessation. [facility] protocol (4) Hypertension Patient reports her blood pressure has been controlled without medications. Continue to monitor BP trend. Clonidine as needed. Discharge Planning when cleared by hand surgery. Problem Qualifiers (1) Proximal phalanx fracture of finger: Qualified Codes: S62.617B - Displaced fracture of proximal phalanx of left little finger, initial encounter for open fracture Richard Mccrary MD Jul 25, 2017 11:05
[2017-07-25] MEDS ORDERED: HYDR-3516 PO (11:08)
--- NOTE | 2017-07-25 15:58 | EKG ---
Date Performed: 07/24/2017 Time Performed: 13:02:01 PTAGE: 61 years EKG: Sinus rhythm POSSIBLE LEFT ATRIAL ENLARGEMENT BORDERLINE ECG PREVIOUS TRACING : 08/18/2006 18.10 DOCTOR: Corbin Shultz Interpretating Date/Time 07/25/2017 15:55:55
--- NOTE | 2017-07-25 16:31 | HHI.PR ---
Subjective Remarks complains of pain over left hand also complains of mild tingling of the finger tips no fever Objective Vital Signs Date Time Temp Pulse Resp B/P (MAP) Pulse Ox O2 Delivery O2 Flow Rate FiO2 07/25/17 15:49 98.2 83 17 135/81 (99) 93 07/25/17 12:07 97.9 74 18 115/70 (85) 94 07/25/17 08:11 97.6 75 17 137/91 (106) 95 07/25/17 03:40 97.7 75 18 117/74 (88) 95 07/25/17 00:25 98.2 79 18 123/73 (90) 94 07/24/17 22:56 19 07/24/17 22:47 Nasal Cannula 2.00 07/24/17 20:30 98.0 84 18 179/79 (112) 94 07/24/17 20:00 97.7 72 20 146/86 (106) 96 Nasal Cannula 2 07/24/17 19:45 73 20 149/88 (108) 96 Nasal Cannula 2 07/24/17 19:30 74 20 142/79 (100) 94 Nasal Cannula 2 07/24/17 19:15 79 20 145/76 (99) 94 Nasal Cannula 2 07/24/17 18:53 97.7 107 20 129/104 (112) 93 Nasal Cannula 2 07/24/17 16:49 I/O 07/24/17 07/24/17 07/24/17 07/25/17 07/25/17 07/25/17 07:00 15:00 23:00 07:00 15:00 23:00 Intake Total 1480 ml 580 ml 800 ml Output Total 5 ml Balance 1475 ml 580 ml 800 ml Intake Oral 480 ml 480 ml 800 ml IV Total 1000 ml 100 ml Output Estimated Blood Loss 5 ml # Voids 0 1 2 # Bowel Movements 0 0 0 left hand: dressing and splint in place intact sensation distally intact capillary refill Result Diagram: 07/25/1774207/25/17742 Assessment and Plan Assessment and Plan 61 year old female s/p wash, debridement ORIF proximal phalanx left little finger Plan: keep the part elevated continue with IV antibiotics will change dressing and splint tomorrow. plan for discharge after dressing change tomorrow on po antibiotics Tej Briggs MD Jul 25, 2017 16:31
[2017-07-26] MEDS: ACETAMINOPHEN/HYDROcodone 325 MG/5 MG TAB PO PRN ×3 (04:13→19:55)
[2017-07-26 08:00] VITALS: BP 183/86; PULSE 76; RESP 20; TEMP 98.9; O2SAT 93
[2017-07-26] MEDS ORDERED: PNEUMOCOCCAL POLYVALENT INJ 25 MCG/0.5 ML SYR IM ONE (10:00)
[2017-07-26] MEDS ORDERED: INFLUENZA VIRUS VACCINE (QUADRIVALENT) 0.5 ML SYR IM ONE (10:00)
[2017-07-26] MEDS: SODIUM CHLORIDE 0.9% FLUSH 10 ML FLUSH IV FLUSH SCH ×2 (10:22→19:56)
--- NOTE | 2017-07-26 11:05 | HHI.PR ---
Subjective Remarks in no distress. pain is controlled. no fever. no new complaints. Objective Vitals Vital Signs Date Time Temp Pulse Resp B/P (MAP) Pulse Ox O2 Delivery O2 Flow Rate FiO2 07/26/17 08:00 98.9 76 20 183/86 (118) 93 07/26/17 05:13 19 07/25/17 23:00 98.4 77 17 158/90 (112) 93 07/25/17 22:18 Room Air 07/25/17 20:42 98.2 76 17 119/75 (90) 92 07/25/17 15:49 98.2 83 17 135/81 (99) 93 07/25/17 12:07 97.9 74 18 115/70 (85) 94 I/O 07/25/17 07/25/17 07/25/17 07/26/17 07/26/17 07/26/17 07:00 15:00 23:00 07:00 15:00 23:00 Intake Total 580 ml 800 ml 460 ml 580 ml Balance 580 ml 800 ml 460 ml 580 ml Intake Oral 480 ml 800 ml 360 ml 480 ml IV Total 100 ml 100 ml 100 ml # Voids 1 2 4 1 # Bowel Movements 0 0 0 0 Result Diagram: 07/25/17 0743 07/25/17 0743 Imaging Last Impressions Hand X-Ray 07/24/17 0000 Signed Impressions: Service Date/Time: Monday, July 24, 2017 11:07 - CONCLUSION: Angulated fracture of the proximal metaphysis of the 5th digit proximal phalanx. Jason Leonardo MD Objective Remarks GENERAL: This is a well-nourished, well-developed patient, in no apparent distress. CARDIOVASCULAR: Regular rate and regular rhythm without murmurs, gallops, or rubs. RESPIRATORY: Clear to auscultation. Breath sounds equal bilaterally. No wheezes , rales, or rhonchi. GASTROINTESTINAL: Abdomen soft, non-tender, nondistended. Normal, active bowel sounds MUSCULOSKELETAL: left hand covered with clean dressing. NEURO: Alert & Oriented x4 to person, place, time, situation. Moves all ext x4 Procedures Wash, debridement, open reduction internal fixation proximal phalanx with K-wire , left little finger. Medications and IVs Inpatient Medications Acetaminophen (Tylenol) 650 mg Q6H PRN PO PAIN SCALE 1 TO 5; Start 2/20/18 at 12:45 Acetaminophen/ Hydrocodone Bitart ([place] 5-325 Mg) 1 tab Q4H PRN PO PAIN GREATER THAN 5 Last administered on 07/26/17at 10:19; Start 07/24/17 at 12:45 Bisacodyl (Dulcolax Supp) 10 mg DAILY PRN RECTAL SEVERE CONSITIPATION; Start at 12:45 Cefazolin Sodium 1000 mg/Sodium Chloride 100 ml @ 200 mls/hr Q8H IV Last administered on 07/26/17at 10:22; Start 07/24/17 at 20:00 Cefazolin Sodium/ Dextrose 50 ml @ 100 mls/hr ONCE ONCE IV Last administered on 07/24/17at 12:14; Start 07/24/17 at 12:00; Stop 07/24/17 at 12:29; Status DC Chlorhexidine Gluconate (Chlorhexidine 2% Cloth) 3 pack MOLDER TRIMMER PRN TOPICAL SEE LABEL COMMENTS; Start 07/24/17 at 17:00; Stop 07/27/17 at 16:59 Clonidine (Catapres) 0.1 mg Q6H PRN PO SBP> OR = 180, DBP> OR = 100 Last administered on 07/25/17at 03:41; Start 07/24/17 at 12:45 Flumazenil (Romazicon Inj) 0.2 mg Q1M PRN IV PUSH SEE LABEL COMMENTS; Start at 12:45 Gentamicin Sulfate/Sodium Chloride 100 ml @ 200 mls/hr ONCE ONCE IV Last administered on 07/24/17at 12:33; Start 07/24/17 at 12:00; Stop 07/24/17 at 12:29 ; Status DC Influenza Virus Vaccine (Flu (Quadrivalent) Vaccine Inj) 0.5 ml ONCE ONCE IM Last administered on 07/26/17at 10:21; Start 07/26/17 at 10:00; Stop 07/26/17 at 10:01; Status DC Lactated Ringer's 1,000 ml @ 30 mls/hr Q24H PRN IV SEE LABEL COMMENTS; Start at 17:00; Stop 07/27/17 at 16:59 Lactulose (Lactulose Liq) 30 ml DAILY PRN PO SEVERE CONSITIPATION; Start at 12:45 Lorazepam (Ativan Inj) 2 mg Q15M PRN IV PUSH CIWA > 20; Start 07/24/17 at 12:45 Lorazepam (Ativan) 2 mg Q2H PRN PO CIWA 11-14; Start 07/24/17 at 12:45 Magnesium Hydroxide (Milk Of Magnesia Liq) 30 ml Q12H PRN PO Mild constipation ; Start 07/24/17 at 12:45 Metoprolol Tartrate (Lopressor) 25 mg MOLDER TRIMMER PRN PO SEE LABEL COMMENTS; Start 07/24/17 at 17:00; Stop 07/27/17 at 16:59 Miscellaneous Information ALL NURSING DEPARTME... UNSCH PRN .XX SEE LABEL COMMENTS; Start 07/24/17 at 18:50; Stop 07/25/17 at 18:49; Status DC Naloxone HCl (Narcan Inj) 0.4 mg UNSCH PRN IV PUSH SEE LABEL COMMENTS; Start at 12:45 Neomycin/Polymyxin (Neosporin G.u. Irr) 1 ml ONCE ONCE IRRIGATION ; Start 07/24 at 18:45; Stop 07/24/17 at 19:35; Status DC Ondansetron HCl (Zofran Inj) 4 mg Q6H PRN IVP NAUSEA OR VOMITING; Start at 12:45 Pneumococcal Polyvalent Vaccine (Pneumovax-23 Inj) 25 mcg ONCE ONCE IM Last administered on 07/26/17at 10:20; Start 07/26/17 at 10:00; Stop 07/26/17 at 10:01 ; Status DC Povidone Iodine (Betadine 5% Antisepsis Kit) 1 applic MOLDER TRIMMER PRN EACH NARE SEE LABEL COMMENTS; Start 07/24/17 at 17:00; Stop 07/27/17 at 16:59 Sennosides (Senokot) 17.2 mg Q12H PRN PO Moderate constipation; Start 07/24/17 at 12:45 Sodium Chloride 500 ml @ 30 mls/hr [id number] PRN IV SEE LABEL COMMENTS; Start at 17:00; Stop 07/27/17 at 16:59 Sodium Chloride (NS Flush) 2 ml BID IV FLUSH Last administered on 07/26/17at 10: 22; Start 07/24/17 at 21:00 A/P Problem List: (1) Proximal phalanx fracture of finger ICD Code: S62.619A - Displaced fracture of proximal phalanx of unspecified finger, initial encounter for closed fracture Status: Acute (2) Cellulitis ICD Code: L03.90 - Cellulitis, unspecified (3) Alcohol dependence ICD Code: F10.20 - Alcohol dependence, uncomplicated (4) Hypertension ICD Code: I10 - Essential (primary) hypertension Assessment and Plan (1) Proximal phalanx fracture of finger s/p Wash, debridement, open reduction internal fixation proximal phalanx with K- wire, left little finger. continue with pain control- management per hand surgery. (2) Cellulitis Secondary to above, and mild surrounding cellulitis. Continue IV Ancef. follow the cultures. (3) Alcohol dependence The patient was counseled regarding cessation. CIWA protocol (4) Hypertension Patient reports her blood pressure has been controlled without medications. Continue to monitor BP trend. Clonidine as needed. f/u as outpatient. Discharge Planning possibly today; when cleared by hand surgery- pending the cultures. Problem Qualifiers (1) Proximal phalanx fracture of finger: Qualified Codes: S62.617B - Displaced fracture of proximal phalanx of left little finger, initial encounter for open fracture Richard Mccrary MD Jul 26, 2017 11:05
[2017-07-26 12:00] VITALS: BP 160/78; PULSE 78; RESP 20; TEMP 98.2; O2SAT 96
--- NOTE | 2017-07-26 15:06 | HHI.PR ---
Subjective Remarks complains of mild pain over left hand no tingling or numbness no fever Objective Vital Signs Date Time Temp Pulse Resp B/P (MAP) Pulse Ox O2 Delivery O2 Flow Rate FiO2 07/26/17 12:00 98.2 78 20 160/78 (105) 96 07/26/17 08:00 98.9 76 20 183/86 (118) 93 07/26/17 05:13 19 07/25/17 23:00 98.4 77 17 158/90 (112) 93 07/25/17 22:18 Room Air 07/25/17 20:42 98.2 76 17 119/75 (90) 92 07/25/17 15:49 98.2 83 17 135/81 (99) 93 I/O 07/25/17 07/25/17 07/25/17 07/26/17 07/26/17 07/26/17 07:00 15:00 23:00 07:00 15:00 23:00 Intake Total 580 ml 800 ml 460 ml 580 ml Balance 580 ml 800 ml 460 ml 580 ml Intake Oral 480 ml 800 ml 360 ml 480 ml IV Total 100 ml 100 ml 100 ml # Voids 1 2 4 1 # Bowel Movements 0 0 0 0 left hand: laceration site clean and dry pin tract site clean and dry intact sensation over the pulp intact distal sensation Result Diagram: 07/25/1774207/25/17742 Assessment and Plan Assessment and Plan 61 year old female s/p wash, debridement ORIF proximal phalanx left little finger POD 2 Plan: new dressing and short arm ulnar gutter splint was applied cleared for discharge on po antibiotics and pain meds for one week sling to left upper extremity follow up in office on Tuesday 08/01 at 2.00pm Tej Briggs MD Jul 26, 2017 15:06
[2017-07-26 16:00] VITALS: BP 177/97; PULSE 77; RESP 20; TEMP 98.6; O2SAT 93
[2017-07-26 20:00] VITALS: BP 190/104; PULSE 81; RESP 18; TEMP 99.3; O2SAT 94
[2017-07-27 00:10] VITALS: BP 144/94; PULSE 76; RESP 18; TEMP 98.5; O2SAT 95
[2017-07-27] MEDS: ACETAMINOPHEN/HYDROcodone 325 MG/5 MG TAB PO PRN ×3 (03:09→12:41)
[2017-07-27 04:10] VITALS: BP 144/86; PULSE 72; RESP 18; TEMP 97.6; O2SAT 95
[2017-07-27 08:00] VITALS: BP 150/97; PULSE 79; RESP 18; TEMP 97.4; O2SAT 95
[2017-07-27] MEDS: SODIUM CHLORIDE 0.9% FLUSH 10 ML FLUSH IV FLUSH SCH (08:52)
--- NOTE | 2017-07-27 11:33 | HHI.PR ---
Subjective Remarks in no acute distress. pain is controlled. no fever. no new complaints. Objective Vitals Vital Signs Date Time Temp Pulse Resp B/P (MAP) Pulse Ox O2 Delivery O2 Flow Rate FiO2 07/27/17 08:30 Room Air 07/27/17 08:00 97.4 79 18 150/97 (114) 95 07/27/17 04:10 97.6 72 18 144/86 (105) 95 07/27/17 00:10 98.5 76 18 144/94 (111) 95 07/26/17 20:00 99.3 81 18 190/104 (132) 94 07/26/17 16:00 98.6 77 20 177/97 (123) 93 07/26/17 12:00 98.2 78 20 160/78 (105) 96 I/O 07/26/17 07/26/17 07/26/17 07/27/17 07/27/17 07/27/17 07:00 15:00 23:00 07:00 15:00 23:00 Intake Total 580 ml 720 ml 460 ml 460 ml Balance 580 ml 720 ml 460 ml 460 ml Intake Oral 480 ml 720 ml 360 ml 360 ml IV Total 100 ml 100 ml 100 ml # Voids 1 3 2 4 # Bowel Movements 0 0 3 Result Diagram: 07/25/17 0743 07/25/17 0743 Imaging Last Impressions Hand X-Ray 07/24/17 0000 Signed Impressions: Service Date/Time: Monday, July 24, 2017 11:07 - CONCLUSION: Angulated fracture of the proximal metaphysis of the 5th digit proximal phalanx. Jason Leonardo MD Objective Remarks GENERAL: This is a well-nourished, well-developed patient, in no apparent distress. CARDIOVASCULAR: Regular rate and regular rhythm without murmurs, gallops, or rubs. RESPIRATORY: Clear to auscultation. Breath sounds equal bilaterally. No wheezes , rales, or rhonchi. GASTROINTESTINAL: Abdomen soft, non-tender, nondistended. Normal, active bowel sounds MUSCULOSKELETAL: left hand covered with clean dressing. NEURO: Alert & Oriented x4 to person, place, time, situation. Moves all ext x4 Procedures Wash, debridement, open reduction internal fixation proximal phalanx with K-wire , left little finger. Medications and IVs Inpatient Medications Acetaminophen (Tylenol) 650 mg Q6H PRN PO PAIN SCALE 1 TO 5; Start 07/24/17 at 12:45 Acetaminophen/ Hydrocodone Bitart ([place] 5-325 Mg) 1 tab Q4H PRN PO PAIN GREATER THAN 5 Last administered on 07/27/17at 08:52; Start 07/24/17 at 12:45 Bisacodyl (Dulcolax Supp) 10 mg DAILY PRN RECTAL SEVERE CONSITIPATION Last administered on 07/27/17at 05:22; Start 07/24/17 at 12:45 Cefazolin Sodium 1000 mg/Sodium Chloride 100 ml @ 200 mls/hr Q8H IV Last administered on 07/27/17at 03:08; Start 07/24/17 at 20:00 Cefazolin Sodium/ Dextrose 50 ml @ 100 mls/hr ONCE ONCE IV Last administered on 07/24/17at 12:14; Start 07/24/17 at 12:00; Stop 07/24/17 at 12:29; Status DC Chlorhexidine Gluconate (Chlorhexidine 2% Cloth) 3 pack FINANCIAL COACH PRN TOPICAL SEE LABEL COMMENTS; Start 07/24/17 at 17:00; Stop 07/27/17 at 16:59 Clonidine (Catapres) 0.1 mg Q6H PRN PO SBP> OR = 180, DBP> OR = 100 Last administered on 07/25/17at 03:41; Start 07/24/17 at 12:45 Flumazenil (Romazicon Inj) 0.2 mg Q1M PRN IV PUSH SEE LABEL COMMENTS; Start at 12:45 Gentamicin Sulfate/Sodium Chloride 100 ml @ 200 mls/hr ONCE ONCE IV Last administered on 07/24/17at 12:33; Start 07/24/17 at 12:00; Stop 07/24/17 at 12:29 ; Status DC Influenza Virus Vaccine (Flu (Quadrivalent) Vaccine Inj) 0.5 ml ONCE ONCE IM Last administered on 07/26/17at 10:21; Start 07/26/17 at 10:00; Stop 07/26/17 at 10:01; Status DC Lactated Ringer's 1,000 ml @ 30 mls/hr Q24H PRN IV SEE LABEL COMMENTS; Start at 17:00; Stop 07/27/17 at 16:59 Lactulose (Lactulose Liq) 30 ml DAILY PRN PO SEVERE CONSITIPATION; Start at 12:45 Lorazepam (Ativan Inj) 2 mg Q15M PRN IV PUSH CIWA > 20; Start 07/24/17 at 12:45 Lorazepam (Ativan) 2 mg Q2H PRN PO CIWA 11-14; Start 07/24/17 at 12:45 Magnesium Hydroxide (Milk Of Magnesia Liq) 30 ml Q12H PRN PO Mild constipation Last administered on 07/26/17at 19:55; Start 07/24/17 at 12:45 Metoprolol Tartrate (Lopressor) 25 mg FINANCIAL COACH PRN PO SEE LABEL COMMENTS; Start 07/24/17 at 17:00; Stop 07/27/17 at 16:59 Miscellaneous Information ALL NURSING DEPARTME... UNSCH PRN .XX SEE LABEL COMMENTS; Start 07/24/17 at 18:50; Stop 07/25/17 at 18:49; Status DC Naloxone HCl (Narcan Inj) 0.4 mg UNSCH PRN IV PUSH SEE LABEL COMMENTS; Start at 12:45 Neomycin/Polymyxin (Neosporin G.u. Irr) 1 ml ONCE ONCE IRRIGATION ; Start 07/24 at 18:45; Stop 07/24/17 at 19:35; Status DC Ondansetron HCl (Zofran Inj) 4 mg Q6H PRN IVP NAUSEA OR VOMITING; Start at 12:45 Pneumococcal Polyvalent Vaccine (Pneumovax-23 Inj) 25 mcg ONCE ONCE IM Last administered on 07/26/17at 10:20; Start 07/26/17 at 10:00; Stop 07/26/17 at 10:01 ; Status DC Povidone Iodine (Betadine 5% Antisepsis Kit) 1 applic FINANCIAL COACH PRN EACH NARE SEE LABEL COMMENTS; Start 07/24/17 at 17:00; Stop 07/27/17 at 16:59 Sennosides (Senokot) 17.2 mg Q12H PRN PO Moderate constipation Last administered on 07/26/17at 19:55; Start 07/24/17 at 12:45 Sodium Chloride 500 ml @ 30 mls/hr [id number] PRN IV SEE LABEL COMMENTS; Start at 17:00; Stop 07/27/17 at 16:59 Sodium Chloride (NS Flush) 2 ml BID IV FLUSH Last administered on 07/27/17at 08: 52; Start 07/24/17 at 21:00 A/P Problem List: (1) Proximal phalanx fracture of finger ICD Code: S62.619A - Displaced fracture of proximal phalanx of unspecified finger, initial encounter for closed fracture Status: Acute (2) Cellulitis ICD Code: L03.90 - Cellulitis, unspecified (3) Alcohol dependence ICD Code: F10.20 - Alcohol dependence, uncomplicated (4) Hypertension ICD Code: I10 - Essential (primary) hypertension Assessment and Plan (1) Proximal phalanx fracture of finger s/p Wash, debridement, open reduction internal fixation proximal phalanx with K- wire, left little finger. continue with pain control- management per hand surgery. (2) Cellulitis Secondary to above, and mild surrounding cellulitis. switch to po abx. wound culture with MSSA. (3) Alcohol dependence The patient was counseled regarding cessation. CIWA protocol (4) Hypertension start on norvasc. f/u as outpatient. Discharge Planning dc home with f/u by pcp and hand surgery. see med list. d/w the patient and RN. Problem Qualifiers (1) Proximal phalanx fracture of finger: Qualified Codes: S62.617B - Displaced fracture of proximal phalanx of left little finger, initial encounter for open fracture Richard Mccrary MD Jul 27, 2017 11:33
[2017-07-27] MEDS ORDERED: DOXY100C PO (11:34)
--- NOTE | 2017-07-27 11:34 | HHI.DS ---
Discharge Summary Admission Date Jul 24, 2017 at 12:33 Discharge Date: Jul 27, 2017 Admitting Diagnosis Open fracture (1) Proximal phalanx fracture of finger ICD Code: S62.619A - Displaced fracture of proximal phalanx of unspecified finger, initial encounter for closed fracture Diagnosis: Principal Status: Acute (2) Cellulitis ICD Code: L03.90 - Cellulitis, unspecified Diagnosis: Principal (3) Alcohol dependence ICD Code: F10.20 - Alcohol dependence, uncomplicated Diagnosis: Secondary (4) Hypertension ICD Code: I10 - Essential (primary) hypertension Diagnosis: Principal Procedures Wash, debridement, open reduction internal fixation proximal phalanx with K-wire , left little finger. Brief History - From Admission 61-year-old female who presented to the emergency room with complaint of left fifth finger pain. Apparently the patient fell on her hand about 3 days ago and sustained an injury of the left fifth finger. She reported a laceration on the palmar aspect and significant swelling. She had a ring on that finger which she had to cut. She denies any fevers or chills. Workup in the emergency room revealed an open, angulated fracture at the proximal metaphysis of the fifth phalanx. There appears to be mild surrounding cellulitis as well and concern for infection. The patient last tetanus vaccine was about 4 months ago. Hand surgery has been consulted and planning for surgical intervention. Patient also has a history of hypertension but does not take medications for it. She reports that her blood pressure has been better since she has less stress in her life. CBC/BMP: 07/25/17 0743 07/25/17 0743 Significant Findings Laboratory Tests Test 07/24/17 12:10 07/25/17 07:43 Neutrophils (%) (Auto) 76.5 % (16.0-70.0) 78.2 % (16.0-70.0) Total Protein 8.4 GM/DL (6.4-8.2) Neutrophils # (Auto) 8.3 TH/MM3 (1.8-7.7) Sodium Level 135 MEQ/L (136-145) Imaging Last Impressions Hand X-Ray 07/24/17 0000 Signed Impressions: Service Date/Time: Monday, July 24, 2017 11:07 - CONCLUSION: Angulated fracture of the proximal metaphysis of the 5th digit proximal phalanx. Jason Leonardo MD PE at Discharge GENERAL: This is a well-nourished, well-developed patient, in no apparent distress. CARDIOVASCULAR: Regular rate and regular rhythm without murmurs, gallops, or rubs. RESPIRATORY: Clear to auscultation. Breath sounds equal bilaterally. No wheezes , rales, or rhonchi. GASTROINTESTINAL: Abdomen soft, non-tender, nondistended. Normal, active bowel sounds MUSCULOSKELETAL: left hand covered with clean dressing. NEURO: Alert & Oriented x4 to person, place, time, situation. Moves all ext x4 Hospital Course (1) Proximal phalanx fracture of finger s/p Wash, debridement, open reduction internal fixation proximal phalanx with K- wire, left little finger. continue with pain control- management per hand surgery. (2) Cellulitis Secondary to above, and mild surrounding cellulitis. switch to po abx. wound culture with MSSA. (3) Alcohol dependence The patient was counseled regarding cessation. CIWA protocol (4) Hypertension start on norvasc. f/u as outpatient. Pt Condition on Discharge: Good Discharge Disposition: Discharge Home Discharge Time: <= 30 minutes Discharge Instructions DIET: Follow Instructions for: Heart Healthy Diet Richard Mccrary MD Jul 27, 2017 11:34
[2017-07-27] MEDS ORDERED: NORV2.5T PO (11:36)
[2017-07-27 12:00] VITALS: BP 146/97; PULSE 88; RESP 18; TEMP 98.2; O2SAT 92
== END 2017-07-27 15:04 | disposition home or self-care (01) | DRG 514 ==
LOC: NEPD 10:02 → NEDA 12:33 → N06B 20:16
PROVIDERS: ADMIT Internal Medicine; ATTEND Internal Medicine
PROC: 0PSV04Z Reposition Left Finger Phalanx with Internal Fixation Device, Open Approach (ICD-10-PCS; principal; 2017-07-24 17:10)
DX: S62.617B Displaced fracture of proximal phalanx of left little finger, initial encounter for open fracture (principal); I10 Essential (primary) hypertension; L03.012 Cellulitis of left finger; B95.61 Methicillin susceptible Staphylococcus aureus infection as the cause of diseases classified elsewhere; S62.645A Nondisplaced fracture of proximal phalanx of left ring finger, initial encounter for closed fracture; F10.20 Alcohol dependence, uncomplicated; F17.210 Nicotine dependence, cigarettes, uncomplicated; W19.XXXA Unspecified fall, initial encounter; Z23 Encounter for immunization
CPT/HCPCS: 73130; 76000; 80048; 80053; 85025; 85610; 85730; 86403; 87015; 87070; 87102; 87116; 87147; 87186; 87205; 87206; 90686; 90732; 93005; 96365; J0131; J0690; J1100; J1580; J2405; J2710; J3010; Q2038

== ENCOUNTER 2017-08-01 14:31 | Emergency (ER) | payer SELFPAY ==
[~2017-08-01] VITALS: Ht 172.7 cm; Wt 80.0 kg
[~2017-08-01 14:31] MED LIST changes: +DOXY100C PO; +HYDR-3516 PO; -LISI-363 PO; +NORV2.5T PO
[2017-08-01 14:49] VITALS: BP 127/80; PULSE 85; RESP 16; TEMP 98.1; O2SAT 99
--- NOTE | 2017-08-01 15:10 | PD ---
HPI Chief Complaint: Musculoskeletal Complaint Time Seen by Provider: 15:01 Travel History International Travel<30 days: No Contact w/Intl Traveler<30days: No Traveled to known affect area: No History of Present Illness HPI Patient here status post fall with left fifth phalanx open fracture seen by Dr. Aren hills with open reduction and fixation. Patient was trying to find the orthopedics office, but was unable to find it so she came here. She has no acute issues. She has no known drug allergies PFSH Past Medical History Arthritis: Yes Blood Disorders: No Anxiety: No Depression: No Cancer: No Cardiovascular Problems: No Cerebrovascular Accident: No Endocrine: No Genitourinary: No Headaches: Yes Hypertension: Yes (Does not take medication for it) Immune Disorder: No Musculoskeletal: Yes Neurologic: Yes Psychiatric: Yes Reproductive: No Respiratory: No Migraines: No Seizures: No Past Surgical History AICD: No Arteriovenous Shunt: No Insulin Pump: No Joint Replacement: No Pacemaker: No Social History Alcohol Use: Yes (DAILY) Tobacco Use: Yes (ONE PK PER DAY) Substance Use: No Allergies-Medications (Allergen,Severity, Reaction): Coded Allergies: No Known Allergies (Verified Allergy, Unknown, 07/24/17) Reported Meds & Prescriptions Reported Meds & Active Scripts Active Norvasc (Amlodipine Besylate) 2.5 Mg Tab 2.5 Mg PO DAILY Doxycycline Hyclate 100 Mg Cap 100 Mg PO BID 7 Days Hydrocodone-Acetamin 5-325 mg (Hydrocodone/Acetaminophen) 5 Mg-325 Mg Tablet 1 Tab PO Q4H PRN Review of Systems Except as stated in HPI: all other systems reviewed are Neg Physical Exam Narrative GENERAL: Patient is in no obvious distress. Patient has splint on the left arm and hand in place. Wearing sling. SKIN: Warm and dry. Normal color. Normal turgor HEAD: Atraumatic. Normocephalic. EYES: Pupils equal and round. No scleral icterus. No injection or drainage. ENT: No nasal bleeding or discharge. Mucous membranes pink and moist. NECK: Trachea midline. Supple. CARDIOVASCULAR: Regular rate and rhythm. RESPIRATORY: No accessory muscle use. MUSCULOSKELETAL: Extremities without clubbing, cyanosis, or edema. No obvious deformities. Splint not removed. NEUROLOGICAL: Awake and alert. No obvious cranial nerve deficits. Motor grossly within normal limits. Five out of 5 muscle strength in the arms and legs. Normal speech. PSYCHIATRIC: Appropriate mood and affect; insight and judgment normal. Data Data Last Documented VS Vital Signs Date Time Temp Pulse Resp B/P (MAP) Pulse Ox O2 Delivery O2 Flow Rate FiO2 08/01/17 14:49 98.1 85 16 127/80 (96) 99 [facility] Medical Decision Making Medical Screen Exam Complete: Yes Emergency Medical Condition: No Medical Record Reviewed: Yes Differential Diagnosis Postop surgery. Left pinky open fracture. Need for follow-up. Narrative Course Call placed to Dr. Younger's office who stated she could come right over for her follow-up. A medical screening exam was performed: At the time of evaluation the presenting medical condition was determined not to be of an emergent nature. The patient was given the option of receiving additional care, but declined. Patient was given options for additional community resources from which to obtain care. The Patient Has Been advised to seek medical attention for their presenting complaint. The patient has been advised to return to the ER at any time if an emergent condition develops. Additional Instructions: Patient is to go directly to Dr. Luis christy office after speaking to him on the phone for follow-up. No emergent issue is noted. Disposition: 01 DISCHARGE HOME Condition: Stable Júnior Durand Aug 01, 2017 15:10
== END 2017-08-01 15:19 | disposition left against medical advice (07) ==
LOC: NEPD 14:31
DX: Z48.01 Encounter for change or removal of surgical wound dressing (principal)
CPT/HCPCS: 99281

== ENCOUNTER 2017-10-08 11:38 | Emergency (ER) | payer SELFPAY ==
[~2017-10-08] VITALS: Ht 175.3 cm; Wt 80.0 kg
[2017-10-08 11:40] VITALS: BP 159/92; PULSE 114; PULSE 97; RESP 18; TEMP 98.6; O2SAT 95
--- NOTE | 2017-10-08 12:28 | PD ---
HPI Chief Complaint: Back/ Neck Pain or Injury Time Seen by Provider: 12:10 Travel History International Travel<30 days: No Contact w/Intl Traveler<30days: No Traveled to known affect area: No History of Present Illness HPI 62-year-old female presents to the emergency room for evaluation of neck pain for the past 2 days. She denies any trauma or injury. Patient states she woke up with the pain 2 days ago but that was mostly localized to the left lateral neck. Occasionally radiates up into her left lower head. States instead of getting better, it has now progressed to the right side of her neck. Worse with any range of motion or palpation of the neck or upper back. Shoots into her shoulder but there are no paresthesias. She took her friend's medication but she does not know the name of it. States it just helped her sleep; she knows it is not Lortab. She denies any fever, chills, nausea, vomiting. She denies any chronic medical conditions or daily medications. She has history of neck problems. PFSH Past Medical History Arthritis: Yes Blood Disorders: No Anxiety: No Depression: No Cancer: No Cardiovascular Problems: No Cerebrovascular Accident: No Endocrine: No Genitourinary: No Headaches: Yes Hypertension: Yes (Does not take medication for it) Immune Disorder: No Musculoskeletal: Yes Neurologic: Yes Psychiatric: Yes Reproductive: No Respiratory: No Migraines: No Seizures: No Past Surgical History AICD: No Arteriovenous Shunt: No Insulin Pump: No Joint Replacement: No Pacemaker: No Social History Alcohol Use: Yes (DAILY) Tobacco Use: Yes (ONE PK PER DAY) Substance Use: No Allergies-Medications (Allergen,Severity, Reaction): Coded Allergies: No Known Allergies (Verified Allergy, Unknown, 10/08/17) Reported Meds & Prescriptions Reported Meds & Active Scripts Active Norvasc (Amlodipine Besylate) 2.5 Mg Tab 2.5 Mg PO DAILY Doxycycline Hyclate 100 Mg Cap 100 Mg PO BID 7 Days Hydrocodone-Acetamin 5-325 mg (Hydrocodone/Acetaminophen) 5 Mg-325 Mg Tablet 1 Tab PO Q4H PRN Review of Systems Except as stated in HPI: all other systems reviewed are Neg Physical Exam Narrative GENERAL: Well-nourished, well-developed female no acute distress. Afebrile. Ambulatory. SKIN: Focused skin assessment warm/dry. HEAD: Normocephalic. EYES: No scleral icterus. No injection or drainage. NECK: Supple, trachea midline. No JVD or lymphadenopathy. Mild tenderness to palpation of midline. Limited range of motion secondary to pain. Extreme tenderness to palpation of the left lateral paraspinous musculature and trapezius muscle. CARDIOVASCULAR: Regular rate and rhythm without murmurs, gallops, or rubs. RESPIRATORY: Breath sounds equal bilaterally. No accessory muscle use. BACK: Nontender without obvious deformity. No CVA tenderness. Data Data Last Documented VS Vital Signs Date Time Temp Pulse Resp B/P (MAP) Pulse Ox O2 Delivery O2 Flow Rate FiO2 10/08/17 11:40 98.6 97 18 159/92 (114) 95 Orders Orders Ketorolac Inj (Toradol Inj) (10/08/17 12:30) Orphenadrine Inj (Norflex Inj) (10/08/17 12:30) [facility] Medical Decision Making Medical Screen Exam Complete: Yes Emergency Medical Condition: Yes Medical Record Reviewed: Yes Differential Diagnosis Cervical strain, muscle spasm, fracture, dislocation Narrative Course 62-year-old female with history of neck pain presents to the emergency room for evaluation of the same. States she woke up the symptoms. Denies any trauma or injury. Physical exam is reassuring. Patient sitting up, resting temporally. There is extreme tenderness to palpation of the left trapezius muscle and paraspinous musculature the cervical spine. Limited range of motion secondary to pain. Neck supple. No fevers. No indication for imaging. Patient given Toradol and Norflex in the emergency room. She was discharged with prescription for Robaxin. Told to follow-up the primary care physician for outpatient management and referral to orthopedist or return to the emergency room for worsening symptoms. She understands and agrees to plan. Diagnosis Primary Impression: Muscle spasm Referrals: Primary Care Physician Additional Instructions: Rest and drink plenty of fluids. Take Robaxin as directed, as needed for pain. Apply heat to the affected area for 20 minutes at a time, as needed for pain and swelling. Follow-up with a primary care physician. Return to the emergency room for worsening symptoms. Med/Other Pt SpecificInfo: Prescription(s) given Disposition: 01 DISCHARGE HOME Condition: Stable Anna Lee October 08, 2017 12:28
[2017-10-08] MEDS ORDERED: ROBA750T PO (12:29)
[2017-10-08] MEDS ORDERED: KETOROLAC TROMETHAMINE 60 MG/2 ML (IM) VIAL IM ONE (12:30)
[2017-10-08] MEDS ORDERED: ORPHENADRINE INJ 60 MG/2 ML AMP IM ONE (12:30)
== END 2017-10-08 12:52 | disposition home or self-care (01) ==
LOC: NEPK 11:38
DX: M62.838 Other muscle spasm (principal); M19.90 Unspecified osteoarthritis, unspecified site; I10 Essential (primary) hypertension
CPT/HCPCS: 96372; 99283; J1885; J2360